=== PATIENT | female | born 1985 | race Caucasian/White ===

== ENCOUNTER → 2019-12-16 09:06 | Outpatient (BNVA) | payer OTHER, SELFPAY | PROVIDERS: Visit Provider Nurse Practitioner | DX: F43.12 Post-traumatic stress disorder, chronic (principal); F41.1 Generalized anxiety disorder; F33.2 Major depressive disorder, recurrent severe without psychotic features | CPT/HCPCS: 99213 ==

== ENCOUNTER 2020-08-05 08:46 | Emergency (ER) | payer MEDICAID, SELFPAY ==
[2020-08-05 09:00] VITALS: BP 133/77; PULSE 89; RESP 18; TEMP 36.6; O2SAT 96; BMI 25.6
[2020-08-05 09:13] VITALS: BP 133/77; PULSE 85; RESP 18; O2SAT 99
--- NOTE | 2020-08-05 09:18 | US_ITS ---
WS: [id number] EARLY OBSTETRICAL ULTRASOUND (<14 WEEKS). HISTORY: Vaginal bleed with cramping COMPARISON: None available. Single intrauterine gestational sac is identified. Uterus is retroverted. Cardiac activity at 100 BPM . [place]-rump length measures 0.2 cm which corresponds to a gestation of 5w6d. Normal-appearing yolk s ac and amnion demonstrated. No subchorionic hemorrhage. No free fluid. Mild thick wall corpus luteum cyst RIGHT ovary measures 1.3 x 0.7 x 1.5 cm. Bilateral small ovarian f ollicles. US/US OB <=14 wk fetus w transvag IMPRESSION: 1. Single intrauterine gestation of 5 weeks 6 days with an EDC of 04/01/2021. 2. Normal cardiac activity.
--- NOTE | 2020-08-05 09:35 | ED_ITS ---
HPI - General: Chief complaint: Vaginal Bleeding Stated complaint: vaginal bleeding Time Seen by Provider: 08/05/20 09:04 History of Present Illness: HPI Narrative: 35-year-old female patient presents to the emergency department with vaginal bleeding that occurred 2 to 3 days ago. She reports saturated 1 pad, bleeding stopped, she continues with cramping today upon exam. She reports positive test at home, last menstrual period 07/01/2020. She is 4 para 2 missed AB 2015. States has not taken anything for pain. MD Complaint: vaginal bleeding Onset (ago): day(s) (4-5) Pain Consistency: intermittent Location: pelvis Severity: mild Severity scale (1-10): 3 Quality: Cramping Radiation: pelvis Relieving factors: none Exacerbating factors: none Vaginal discharge: clear (now) Vaginal bleeding: light (2-3 days ago, none today) Date of Last Menstrual Period: 07/01/20 Patient : Yes OB History - Current : no complications OB History - Previous Pregnancies: miscarriage care: none Associated symptoms: Reports no associated symptoms; Deny abdominal pain, dysuria, headache(s), nausea, vaginal bleeding, vaginal discharge or vomiting Related Data: : 4 Review of Systems General: Reports: 10 or more systems reviewed and unremarkable except in HPI and below Const: Denies: fever(s), chills or diaphoresis Eyes: Denies: blurry vision or eye redness ENMT: Denies: throat pain, dental pain or disequilibrium Card: Denies: chest pain, palpitations or irregular heart rhythm Resp: Denies: dyspnea, productive cough, non-productive cough or wheezing GI: Denies: abdominal pain, nausea or vomiting : Reports: vaginal bleeding and pelvic pain; Denies: difficulty voiding, dysuria, urinary frequency, urinary urgency or vaginal discharge Musc: Denies: back pain Skin/Breast: Denies: rash or pruritus Neuro: Denies: headache(s), weakness in extremities or behavioral changes Fermin/Lymph: Denies: easy bruising PFSH ED PFSH: Medical History (Updated 08/05/20 @ 11:21 by JENI Fong) Generalized anxiety disorder Major depressive disorder, recurrent severe without psychotic features Post-traumatic stress disorder, chronic Social History (Updated 12/16/19 @ 09:11 by Denise Villavicencio LPN) Smoking and tobacco status: current every day smoker cigarettes Smoking risk assessment/counseling performed?: Yes Tobacco counseling given: counseling >3 minutes Female Reproductive History: Date of last menstrual period: 07/01/20 : 4 Physical Exam Const: COMMON NORMALS: no acute distress, patient oriented x3, healthy appearing and alert GENERAL APPEARANCE: cooperative, comfortable and well hydrated HENMT: COMMON NORMALS: normocephalic, Normal external nose present and moist oral mucous membranes HEAD & SCALP: normocephalic NOSE: Normal external nose present Eye: COMMON NORMALS: Equal, round and reactive pupils present and EOMs intact bilaterally GENERAL EYE: appearance normal, both eyes and all related structures PUPIL: Yes Equal, round and reactive pupils present Neck/C-Spine: COMMON NORMALS: full ROM and no lymphadenopathy GENERAL: Yes normal visual inspection and Yes trachea midline CERVICAL SPINE: Yes cervical ROM normal Lymph: LYMPHATIC: no lymphadenopathy noted Chest: COMMONS NORMALS: normal inspection of the chest Resp: COMMON NORMALS: normal respiratory effort and clear to auscultation bilaterally AUSCULTATION: clear to auscultation bilaterally Cardio: COMMON NORMALS: regular rhythm, S1 normal heart sound present and S2 normal heart sound present RHYTHM: regular rhythm HEART SOUNDS: S1 normal heart sound present and S2 normal heart sound present GI: COMMON NORMALS: Normal to inspection, nondistended, normoactive bowel sounds present, Soft to palpation and non-tender INSPECTION: Yes normal to inspection PALPATION: Yes Soft to palpation : COMMON NORMALS: Yes no CVA tenderness BLADDER/KIDNEY EXAM: Yes no CVA tenderness EXTERNAL FEMALE EXAM: Yes normal appearance of the urethra, No Inguinal lymphadenopathy and No externally tender SPECULUM EXAM - VAGINA: No laceration, No vaginal bleeding and No tenderness SPECULUM EXAM - CERVIX: No Cervical os open, Yes Cervical os closed, No Tissue present in the cervical os, No Cervical bleeding and Yes Cervical tenderness present BIMANUAL EXAM - VAGINA & UTERUS: Yes Cervical tenderness present and Yes Uterine tenderness OB/EXTERNAL & SPECULUM: No Cervical os open and vaginal bleeding Back/Pelvis: COMMON NORMALS: no CVA tenderness and thoracic and lumbar spine normal to inspection Extremity: COMMON NORMALS: normal to inspection and capillary refill normal Neuro: COMMON NORMALS: patient oriented x3 and no focal motor deficits SENSORIUM/ORIENTATION: Yes alert Psych: COMMON NORMALS: mental status grossly normal, Normal thought process present and cooperative ACTIVITY/MOTOR BEHAVIOR: Yes appropriate eye contact THOUGHT PROCESS: Normal thought process present Skin: COMMON NORMALS: no rashes or lesions noted and turgor normal GENERAL SKIN EXAM: no rashes or lesions noted and turgor normal Course ED course: 35 year old female presents to the ED with vag bleeding, early , 5 weeks, 6 days, no bleeding identified with pelvic exam. BHCG appropriate for gestational age. RH +, BV noted on wet prep, Rx for Flagyl was provided to staff after patient left the ED. Advised to return to the ED for increased vag bleeding, increased pelvic pain or other concerning symptoms, verbalized understanding. Questions were answered as results of testing today discussed. Vital Signs: Vital signs: Vital Signs Temperature 97.8 F 08/05/20 11:34 Pulse Rate 70 08/05/20 11:34 Respiratory Rate 16 08/05/20 11:34 Blood Pressure 104/57 08/05/20 11:34 Pulse Oximetry 100 08/05/20 11:34 MDM - OB/Uterine Contractions Lab Data: Labs: Lab Results 08/05/20 08/05/20 08/05/20 Range/Units 09:20 09:20 09:20 WBC 8.6 (4.0-10.0) 10^3/ uL RBC 4.95 (4.1-5.3) 10^6/u L Hgb 15.1 (11.5-15.3) g/dL Hct 45.5 (37.0-47.0) % MCV 91.9 (81-99) fL MCH 30.5 (28.0-34.0) pg MCHC 33.2 (30.0-36.0) g/dL RDW 12.0 L (12.1-15.1) % Plt Count 320 (130-400) 10^3/c mm MPV 10.7 H (7.4-10.4) fL Neut % (Auto) 67.2 % Lymph % (Auto) 21.8 % Bryan % (Auto) 8.4 % Eos % (Auto) 1.6 % Baso % (Auto) 0.5 % Neut # (Auto) 5.75 (1.8-7.7) 10^3/u L Lymph # (Auto) 1.9 (0.8-4.8) 10^3/u L Bryan # (Auto) 0.7 (0.2-0.9) 10^3/u L Eos # (Auto) 0.1 (0.0-0.8) 10^3/u L Baso # (Auto) 0.0 (0.0-0.1) 10^3/u L Nucleated RBC % (a uto) 0 % Nucleated RBCs # 0.0 /100WBC Sodium 136 (136-145) mmol/L Potassium 3.7 (3.5-5.1) mmol/L Chloride 104 (98-107) mmol/L Carbon Dioxide 22 (22-29) mmol/L Anion Gap 13.7 (5-19) BUN 9 (6-20) mg/dL Creatinine 0.6 (0.5-0.9) mg/dL GFR Calculation 115.1 (90-130) mL/min Glucose 139 H (65-115) mg/dL Calculated Osmolal ity 283 L (285-295) mOsm/k g Calcium 9.1 (8.5-10.5) mg/dL Total Bilirubin 0.2 (0.15-1.2) mg/dL AST 17 (0-32) U/L ALT 19 (0-33) U/L Alkaline Phosphata se 60 (35-105) IU/L Total Protein 7.0 (6.6-8.7) g/dL Albumin 4.3 (3.5-5.2) g/dL Globulin 2.7 (1.3-4.6) g/dL Ser , Tayo i-Qnt mIU/mL Blood Type AB Positive Rho(D) Type Positive 08/05/20 Range/Units 09:20 WBC (4.0-10.0) 10^3/ uL RBC (4.1-5.3) 10^6/u L Hgb (11.5-15.3) g/dL Hct (37.0-47.0) % MCV (81-99) fL MCH (28.0-34.0) pg MCHC (30.0-36.0) g/dL RDW (12.1-15.1) % Plt Count (130-400) 10^3/c mm MPV (7.4-10.4) fL Neut % (Auto) % Lymph % (Auto) % Bryan % (Auto) % Eos % (Auto) % Baso % (Auto) % Neut # (Auto) (1.8-7.7) 10^3/u L Lymph # (Auto) (0.8-4.8) 10^3/u L Bryan # (Auto) (0.2-0.9) 10^3/u L Eos # (Auto) (0.0-0.8) 10^3/u L Baso # (Auto) (0.0-0.1) 10^3/u L Nucleated RBC % (a uto) % Nucleated RBCs # /100WBC Sodium (136-145) mmol/L Potassium (3.5-5.1) mmol/L Chloride (98-107) mmol/L Carbon Dioxide (22-29) mmol/L Anion Gap (5-19) BUN (6-20) mg/dL Creatinine (0.5-0.9) mg/dL GFR Calculation (90-130) mL/min Glucose (65-115) mg/dL Calculated Osmolal ity (285-295) mOsm/k g Calcium (8.5-10.5) mg/dL Total Bilirubin (0.15-1.2) mg/dL AST (0-32) U/L ALT (0-33) U/L Alkaline Phosphata se (35-105) IU/L Total Protein (6.6-8.7) g/dL Albumin (3.5-5.2) g/dL Globulin (1.3-4.6) g/dL Ser , Tayo i-Qnt 58980.00 mIU/mL Blood Type Rho(D) Type Imaging Data^: US OB: Radiologist's impression: [address] [address] Ultrasound Report Signed Patient: Mansi Figueroa #: [id number] : 1985Acct#:[id number] Age/Sex: 35 / FADM Date: 08/05/20 Loc: ERRoom/Bed: Attending Dr: Ordering Provider/Ordering MD: Herminia Jacobo Date of Service: 08/05/20 Procedure(s): US OB <=14 wk fetus w transvag Accession Number(s): [id number] Report Number: [id number] WS: [id number] EARLY OBSTETRICAL ULTRASOUND (<14 WEEKS). HISTORY: Vaginal bleed with cramping COMPARISON: None available. Single intrauterine gestational sac is identified. Uterus is retroverted. Cardiac activity at 100 BPM. [place]-rump length measures 0.2 cm which corresponds to a gestation of 5w6d. Normal-appearing yolk sac and amnion demonstrated. No subchorionic hemorrhage. No free fluid. Mild thick wall corpus luteum cyst RIGHT ovary measures 1.3 x 0.7 x 1.5 cm. Bila teral small ovarian follicles. US/US OB <=14 wk fetus w transvag IMPRESSION: 1. Single intrauterine gestation of 5 weeks 6 days with an EDC of 04/01/2021. 2. Normal cardiac activity. Dictated By:Josefina Perez DO Signed By:Josefina Perez DOSigned Date/Time:08/05/20 1017 DD/ 1015 Discharge Plan Discharge Patient Disposition: Home Clinical Impression: Threatened in first trimester, Vaginal bleeding in Condition: Stable Prescriptions: No Action alprazolam [Xanax] 0.5 mg tablet 0.5 mg PO TID PRN (Reason: anxiety) Qty: 90 RF: 4 fluoxetine [Prozac] 20 mg capsule 20 mg PO DAILY Qty: 30 RF: 4 Discharge Orders: Discharge Order (Routine); Ordered 08/05/20 Ordered By: Herminia Jacobo Referrals: [facility], [Primary Care Provider] - Discharge Diet: Advance as tolerated Discharge Activity: Resume usual activity Patient Instructions: Threatened Miscarriage (ED), Abdominal Pain in (ED) Activity Restrictions/Additional Instructions: Take Tylenol as needed for pelvic pain Return to the emergency department if you experience vaginal bleeding, increased abdominal/pelvic pain Follow-up with PERINATAL BREASTFEEDING ASSISTANT for OB care. Return to the emergency department if you feel lightheaded or dizzy, drink plenty of fluids, avoid sexual activity until follow-up with your PERINATAL BREASTFEEDING ASSISTANT Discharge Date/Time: 08/05/20 11:37 Coding Level of Care Code ED Stoneworker for Chg Fwd Exam Comprehensive
[2020-08-05 09:45] LABS: Basophils % 0.5 %; Eosinophils # 0.1 10^3/uL (0.0-0.8); Eosinophils % 1.6 %; Hematocrit 45.5 % (37.0-47.0); Hemoglobin 15.1 g/dL (11.5-15.3); Lymphocytes # 1.9 10^3/uL (0.8-4.8); Lymphocytes % 21.8 %; Mean Corpuscular HGB Conc 33.2 g/dL (30.0-36.0); Mean Corpuscular Hemoglobin 30.5 pg (28.0-34.0); Mean Corpuscular Volume 91.9 fL (81-99); Mean Platelet Volume 10.7 fL (7.4-10.4); Monocytes # 0.7 10^3/uL (0.2-0.9); Monocytes % 8.4 %; Neutrophils # 5.75 10^3/uL (1.8-7.7); Neutrophils % 67.2 %; Nucleated Red Blood Cells % 0 %; Platelet Count 320 10^3/cmm (130-400); Red Blood Count 4.95 10^6/uL (4.1-5.3); White Blood Count 8.6 10^3/uL (4.0-10.0)
--- NOTE | 2020-08-05 09:48 | PC.NURSE ---
Pt refused a UA. Doesnt want the extra cost
--- NOTE | 2020-08-05 10:01 | PC.NURSE ---
Pt gave a UA sample,
[2020-08-05 10:13] LABS: Alanine Aminotransferase 19 U/L (0-33); Albumin Level 4.3 g/dL (3.5-5.2); Alkaline Phosphatase 60 IU/L (35-105); Anion Gap 13.7 (5-19); Aspartate Amino Transferase 17 U/L (0-32); Blood Urea Nitrogen 9 mg/dL (6-20); Calcium 9.1 mg/dL (8.5-10.5); Carbon Dioxide 22 mmol/L (22-29); Chloride 104 mmol/L (98-107); Globulin 2.7 g/dL (1.3-4.6); Glomerular Filtration Rate 115.1 mL/min (90-130); Glucose 139 mg/dL (65-115); Osmolality Calculated 283 mOsm/kg (285-295); Potassium 3.7 mmol/L (3.5-5.1); Sodium 136 mmol/L (136-145); Total Bilirubin 0.2 mg/dL (0.15-1.2)
[2020-08-05 10:19] VITALS: BP 115/64; PULSE 86; RESP 18; O2SAT 99
[2020-08-05 11:34] VITALS: BP 104/57; PULSE 70; RESP 16; TEMP 36.6; O2SAT 100
== END 2020-08-05 11:37 | disposition home or self-care (01) ==
PROVIDERS: Emergency Provider Nurse Practitioner Family
DX: O20.0 Threatened abortion (principal); Z3A.01 Less than 8 weeks gestation of pregnancy; O99.331 Smoking (tobacco) complicating pregnancy, first trimester; F17.210 Nicotine dependence, cigarettes, uncomplicated
CPT/HCPCS: 12345; 36415; 76801; 76817; 80053; 84702; 85025; 86900; 87070; 87205; 87210; 87491; 87591; 87661; 99283

== ENCOUNTER 2020-09-06 11:58 | Emergency (ER) | payer MEDICAID, SELFPAY ==
[2020-09-06 12:02] VITALS: BP 133/77; PULSE 89; RESP 16; TEMP 36.5; O2SAT 100; BMI 26.9
--- NOTE | 2020-09-06 12:06 | CTR_ITS ---
PROCEDURE INFORMATION: Exam: CT Head Without Contrast Exam date and time: 09/06/2020 12:07 PM Age: 35 years old Clinical indication: Pain; Headache not specified; Patient HX: Headache x 3 weeks, no trauma; Additional info: LEA TECHNIQUE: Imaging protocol: Computed tomography of the head without contrast. Radiation optimization: All CT scans at this facility use at least one of these dose optimization techniques: automated exposure control; mA and/or kV adjustment per patient size (includes targeted exams where dose is matched to clinical indication); or iterative reconstruction. COMPARISON: No relevant prior studies available. RADIATION DOSE METRICS: Total DLP (mGy-cm): 652.06 FINDINGS: Brain: There is no acute intracranial hemorrhage. No extra-axial fluid collection. No evidence of acute infarct. Mo white differentiation is intact. There is no evidence of mass. There is no mass effect or midline shift. Cerebral ventricles: No ventriculomegaly. Bones/joints: No acute fracture. Paranasal sinuses: Visualized sinuses are unremarkable. No fluid levels. Mastoid air cells: No significant mastoid effusion. Soft tissues: Unremarkable as visualized. CT/CT head wo con* [id number] IMPRESSION: No evidence of acute intracranial abnormality. No acute hemorrhage. No evidence of acute infarct or mass. Radiation Dose CTDIVOL = (mGy): DLP = 652.06 (mGy-cm)
--- NOTE | 2020-09-06 12:07 | W.ED.HA ---
HPI - Headache General: Chief Complaint: Headache Stated Complaint: MIGRAINE X 3 WKS, VISION CHANGES Time Seen by Provider: 09/06/20 12:04 Source: patient Mode of arrival: ambulatory Limitations: no limitations History of Present Illness: HPI Narrative: 35-year-old female states she had a migraine over the last 2 weeks. She states that this gradually worsened over the last 2 weeks. She states that it comes and goes. She does have photophobia. Denies any fever. Denies any injuries. MD elicited complaint: headache Associated symptoms: Deny chest pain, fever(s), nausea, rash or vomiting Review of Systems Const: Denies: fever(s), chills, body aches or change in appetite Eyes: Denies: blurry vision or eye discomfort ENMT: Denies: throat pain or dental pain Card: Denies: chest pain Resp: Denies: dyspnea GI: Denies: abdominal pain, nausea, vomiting or diarrhea : Denies: dysuria Musc: Denies: neck pain or back pain Skin/Breast: Denies: rash Neuro: Reports: headache(s) Psych: Denies: depression Fermin/Lymph: Denies: easy bruising All/Imm: Denies: urticaria PFSH ED PFSH: Medical History Generalized anxiety disorder Major depressive disorder, recurrent severe without psychotic features Post-traumatic stress disorder, chronic Social History Smoking and tobacco status: former smoker Smoking risk assessment/counseling performed?: Yes Tobacco counseling given: counseling >3 minutes Female Reproductive History: Date of last menstrual period: 07/01/20 Physical Exam Const: COMMON NORMALS: no acute distress, patient oriented x3 and healthy appearing HENMT: COMMON NORMALS: normocephalic and atraumatic HEAD & SCALP: normocephalic and atraumatic Eye: COMMON NORMALS: Equal, round and reactive pupils present and EOMs intact bilaterally PUPIL: Yes Equal, round and reactive pupils present Neck/C-Spine: COMMON NORMALS: full ROM and supple Chest: COMMONS NORMALS: normal inspection of the chest and normal palpation of entire chest wall Resp: COMMON NORMALS: normal respiratory effort, No retractions, No use of accessory muscles and clear to auscultation bilaterally AUSCULTATION: clear to auscultation bilaterally Cardio: COMMON NORMALS: regular rate, regular rhythm and No murmurs present (Cardio) RATE: regular rate RHYTHM: regular rhythm GI: COMMON NORMALS: Normal to inspection, nondistended, normoactive bowel sounds present, Soft to palpation, non-tender and no masses PALPATION: Yes Soft to palpation Extremity: COMMON NORMALS: normal to inspection and full ROM Neuro: COMMON NORMALS: patient oriented x3, moves all extremities and no focal motor deficits Psych: COMMON NORMALS: mental status grossly normal, Normal thought process present and cooperative THOUGHT PROCESS: Normal thought process present Skin: COMMON NORMALS: no rashes or lesions noted and no wounds GENERAL SKIN EXAM: no rashes or lesions noted Course Vital Signs: Vital signs: Vital Signs Temperature 97.7 F 09/06/20 12:02 Pulse Rate 97 09/06/20 12:08 Respiratory Rate 16 09/06/20 12:08 Blood Pressure 133/77 09/06/20 12:08 Pulse Oximetry 99 09/06/20 12:08 MDM - Headache MDM Narrative: Medical decision making narrative: Mansi presents here with a headache. Likely migraine headache with her . CT along with CTA are normal. Patient is well-appearing here and feels improved. She is stable for discharge and is to follow-up with PCP and return if worsening. She understands agrees plan. Lab Data: Labs: Lab Results 09/06/20 09/06/20 Range/Units 13:12 13:12 WBC 9.0 (4.0-10.0) 10^3/ uL RBC 4.85 (4.1-5.3) 10^6/u L Hgb 14.7 (11.5-15.3) g/dL Hct 42.9 (37.0-47.0) % MCV 88.5 (81-99) fL MCH 30.3 (28.0-34.0) pg MCHC 34.3 (30.0-36.0) g/dL RDW 12.2 (12.1-15.1) % Plt Count 355 (130-400) 10^3/c mm MPV 10.2 (7.4-10.4) fL Neut % (Auto) 59.9 % Lymph % (Auto) 28.9 % Wilkinson % (Auto) 8.9 % Eos % (Auto) 1.6 % Baso % (Auto) 0.4 % Neut # (Auto) 5.40 (1.8-7.7) 10^3/u L Lymph # (Auto) 2.6 (0.8-4.8) 10^3/u L Wilkinson # (Auto) 0.8 (0.2-0.9) 10^3/u L Eos # (Auto) 0.1 (0.0-0.8) 10^3/u L Baso # (Auto) 0.0 (0.0-0.1) 10^3/u L Nucleated RBC % (a uto) 0 % Nucleated RBCs # 0.0 /100WBC Sodium 138 (136-145) mmol/L Potassium 3.5 (3.5-5.1) mmol/L Chloride 103 (98-107) mmol/L Carbon Dioxide 22 (22-29) mmol/L Anion Gap 16.5 (5-19) BUN 7 (6-20) mg/dL Creatinine 0.5 (0.5-0.9) mg/dL Calculated Osmolal ity 285 (285-295) mOsm/k g Calcium 9.6 (8.5-10.5) mg/dL Total Bilirubin 0.2 (0.15-1.2) mg/dL AST 18 (0-32) U/L ALT 28 (0-33) U/L Alkaline Phosphata se 52 (35-105) IU/L Total Protein 6.9 (6.6-8.7) g/dL Albumin 4.2 (3.5-5.2) g/dL Globulin 2.7 (1.3-4.6) g/dL Imaging Data^: CT Head: Attestation: I personally reviewed and interpreted this imaging study as follows: Radiologist's impression: [address] [address] [address] Scan Report Signed Patient: Mansi Figueroa Unit #: [id number] : 1985 Age/Sex: 35 / F ADM Date: 09/06/20 Loc: ER Room/Bed: Attending Dr: Ordering Provider/Ordering MD: Kalli Vivar MD Date of Service: 09/06/20 Procedure(s): CT angio headneck* [id number] Accession Number(s): [id number] Report Number: [id number] PROCEDURE INFORMATION: Exam: CT Angiography Head With Contrast Exam date and time: 09/06/2020 12:53 PM Age: 35 years old Clinical indication: Pain; Headache; Patient HX: x 10 weeks, patient 2x shielded and aware of risk. ; Additional info: LEA TECHNIQUE: Imaging protocol: Computed tomography angiography of the head with intravenous contrast. I did not consent patient for procedure and was not consulted prior to performing study. History notes indicate that patient was appropriately shielded x2 and aware risk. 3D rendering (Not supervised by radiologist): MIP and/or 3D reconstructed images were created by the technologist. Radiation optimization: All CT scans at this facility use at least one of these dose optimization techniques: automated exposure control; mA and/or kV adjustment per patient size (includes targeted exams where dose is matched to clinical indication); or iterative reconstruction. Contrast material: VISIPAQUE 320; Contrast volume: 80 ml; Contrast route: INTRAVENOUS (IV); COMPARISON: CT head wo con* [id number] 09/06/2020 12:19 PM RADIATION DOSE METRICS: Total DLP (mGy-cm): 2118.46 FINDINGS: ANTERIOR CIRCULATION: Right internal carotid artery: Unremarkable. Intracranial segment is patent with no significant stenosis. No aneurysm. Right middle cerebral artery: Unremarkable. No occlusion or significant stenosis. No aneurysm. Right anterior cerebral artery: Unremarkable. No occlusion or significant stenosis. No aneurysm. Left internal carotid artery: Unremarkable. Intracranial segment is patent with no significant stenosis. No aneurysm. Left middle cerebral artery: Unremarkable. No occlusion or significant stenosis. No aneurysm. Left anterior cerebral artery: Unremarkable. No occlusion or significant stenosis. No aneurysm. POSTERIOR CIRCULATION: Right vertebral artery: Unremarkable. No occlusion or significant stenosis. No aneurysm. Left vertebral artery: Unremarkable. No occlusion or significant stenosis. No aneurysm. Basilar artery: Unremarkable. No occlusion or significant stenosis. No aneurysm. Right posterior cerebral artery: Unremarkable. No occlusion or significant stenosis. No aneurysm. Left posterior cerebral artery: Unremarkable. No occlusion or significant stenosis. No aneurysm. Veins: The cerebral venous structures are patent and show no evidence of thrombosis or occlusion. Brain: No definite mass, mass effect, or midline shift. Cerebral ventricles: Normal. No ventriculomegaly. Bones/joints: Unremarkable. No acute fracture. Soft tissues: Unremarkable. IMPRESSION: Unremarkable CTA. No evidence of arterial stenosis or occlusion. No aneurysm. No evidence of cerebral venous thrombosis. PROCEDURE INFORMATION: Exam: CT Angiography Neck With Contrast Exam date and time: 09/06/2020 12:53 PM Age: 35 years old Clinical indication: Pain; Headache; Patient HX: x 10 weeks, patient 2x shielded and aware of risk. ; Additional info: LEA TECHNIQUE: Imaging protocol: Computed tomography angiography of the neck with intravenous contrast. 3D rendering (Not supervised by radiologist): MIP and/or 3D reconstructed images were created by the technologist. Radiation optimization: All CT scans at this facility use at least one of these dose optimization techniques: automated exposure control; mA and/or kV adjustment per patient size (includes targeted exams where dose is matched to clinical indication); or iterative reconstruction. Contrast material: VISIPAQUE 320; Contrast volume: 80 ml; Contrast route: INTRAVENOUS (IV); COMPARISON: CT head wo con* [id number] 09/06/2020 12:19 PM RADIATION DOSE METRICS: Total DLP (mGy-cm): 2118.46 FINDINGS: Right common carotid artery: No stenosis. No dissection or occlusion. Right internal carotid artery: No stenosis of the extracranial segment. No dissection or occlusion. Right external carotid artery: No occlusion or stenosis of the origin. Right vertebral artery: No stenosis. No dissection or occlusion. Left common carotid artery: No stenosis. No dissection or occlusion. Left internal carotid artery: See Lymph nodes finding. Left external carotid artery: No occlusion or stenosis of the origin. Left vertebral artery: No stenosis. No dissection or occlusion. Subclavian arteries: Bilateral widely patent subclavian arteries. Aorta: Aortic arch normal caliber without aneurysm or dissection. Three vessel aortic arch without great vessel origin stenosis. Other vasculature: Internal jugular veins are widely patent without thrombosis. Bones/joints: No acute fracture. Soft tissues: Normal. No significant soft tissue swelling. Lymph nodes: There is aortic or pulmonary window lymph node measuring 0.7 cm short axis dimension. There is partially visualized soft tissue at left hilum measuring approximately 1.3 cm. This is also likely a lymph node. CT/CT angio headneck* [id number] IMPRESSION: 1. No cervical vascular stenosis, occlusion, or evidence of dissection. 2. Partially visualized mediastinal hilar lymph nodes. Discharge Plan Discharge Patient Disposition: Home Clinical Impression: Headache Qualifiers: Headache type: unspecified Headache chronicity pattern: unspecified pattern Intractability: not intractable Qualified Code(s): R51.9 - Headache, unspecified Condition: Stable Prescriptions: No Action alprazolam [Xanax] 0.5 mg tablet 0.5 mg PO TID PRN (Reason: anxiety) Qty: 90 RF: 4 fluoxetine [Prozac] 20 mg capsule 20 mg PO DAILY Qty: 30 RF: 4 1 tab PO DAILY RF: 0 Discharge Orders: Discharge Order (Routine); Ordered 09/06/20 Ordered By: Kalli Vivar Discharge Diet: Advance as tolerated Discharge Activity: Resume usual activity Patient Instructions: Acute Headache (ED) Coding Level of Care Code ED Grinder Set Up Operator Universal for Chg Fwd Exam Comprehensive
[2020-09-06 12:08] VITALS: BP 133/77; PULSE 97; RESP 16; O2SAT 99
--- NOTE | 2020-09-06 12:52 | CTR_ITS ---
PROCEDURE INFORMATION: Exam: CT Angiography Head With Contrast Exam date and time: 09/06/2020 12:53 PM Age: 35 years old Clinical indication: Pain; Headache; Patient HX: x 10 weeks, patient 2x shielded and aware of risk. ; Additional info: LEA TECHNIQUE: Imaging protocol: Computed tomography angiography of the head with intravenous contrast. I did not consent patient for procedure and was not consulted prior to performing study. History notes indicate that patient was appropriately shielded x2 and aware risk. 3D rendering (Not supervised by radiologist): MIP and/or 3D reconstructed images were created by the technologist. Radiation optimization: All CT scans at this facility use at least one of these dose optimization techniques: automated exposure control; mA and/or kV adjustment per patient size (includes targeted exams where dose is matched to clinical indication); or iterative reconstruction. Contrast material: VISIPAQUE 320; Contrast volume: 80 ml; Contrast route: INTRAVENOUS (IV); COMPARISON: CT head wo con* [id number] 09/06/2020 12:19 PM RADIATION DOSE METRICS: Total DLP (mGy-cm): 2118.46 FINDINGS: ANTERIOR CIRCULATION: Right internal carotid artery: Unremarkable. Intracranial segment is patent with no significant stenosis. No aneurysm. Right middle cerebral artery: Unremarkable. No occlusion or significant stenosis. No aneurysm. Right anterior cerebral artery: Unremarkable. No occlusion or significant stenosis. No aneurysm. Left internal carotid artery: Unremarkable. Intracranial segment is patent with no significant stenosis. No aneurysm. Left middle cerebral artery: Unremarkable. No occlusion or significant stenosis. No aneurysm. Left anterior cerebral artery: Unremarkable. No occlusion or significant stenosis. No aneurysm. POSTERIOR CIRCULATION: Right vertebral artery: Unremarkable. No occlusion or significant stenosis. No aneurysm. Left vertebral artery: Unremarkable. No occlusion or significant stenosis. No aneurysm. Basilar artery: Unremarkable. No occlusion or significant stenosis. No aneurysm. Right posterior cerebral artery: Unremarkable. No occlusion or significant stenosis. No aneurysm. Left posterior cerebral artery: Unremarkable. No occlusion or significant stenosis. No aneurysm. Veins: The cerebral venous structures are patent and show no evidence of thrombosis or occlusion. Brain: No definite mass, mass effect, or midline shift. Cerebral ventricles: Normal. No ventriculomegaly. Bones/joints: Unremarkable. No acute fracture. Soft tissues: Unremarkable. IMPRESSION: Unremarkable CTA. No evidence of arterial stenosis or occlusion. No aneurysm. No evidence of cerebral venous thrombosis. PROCEDURE INFORMATION: Exam: CT Angiography Neck With Contrast Exam date and time: 09/06/2020 12:53 PM Age: 35 years old Clinical indication: Pain; Headache; Patient HX: x 10 weeks, patient 2x shielded and aware of risk. ; Additional info: LEA TECHNIQUE: Imaging protocol: Computed tomography angiography of the neck with intravenous contrast. 3D rendering (Not supervised by radiologist): MIP and/or 3D reconstructed images were created by the technologist. Radiation optimization: All CT scans at this facility use at least one of these dose optimization techniques: automated exposure control; mA and/or kV adjustment per patient size (includes targeted exams where dose is matched to clinical indication); or iterative reconstruction. Contrast material: VISIPAQUE 320; Contrast volume: 80 ml; Contrast route: INTRAVENOUS (IV); COMPARISON: CT head wo con* [id number] 09/06/2020 12:19 PM RADIATION DOSE METRICS: Total DLP (mGy-cm): 2118.46 FINDINGS: Right common carotid artery: No stenosis. No dissection or occlusion. Right internal carotid artery: No stenosis of the extracranial segment. No dissection or occlusion. Right external carotid artery: No occlusion or stenosis of the origin. Right vertebral artery: No stenosis. No dissection or occlusion. Left common carotid artery: No stenosis. No dissection or occlusion. Left internal carotid artery: See Lymph nodes finding. Left external carotid artery: No occlusion or stenosis of the origin. Left vertebral artery: No stenosis. No dissection or occlusion. Subclavian arteries: Bilateral widely patent subclavian arteries. Aorta: Aortic arch normal caliber without aneurysm or dissection. Three vessel aortic arch without great vessel origin stenosis. Other vasculature: Internal jugular veins are widely patent without thrombosis. Bones/joints: No acute fracture. Soft tissues: Normal. No significant soft tissue swelling. Lymph nodes: There is aortic or pulmonary window lymph node measuring 0.7 cm short axis dimension. There is partially visualized soft tissue at left hilum measuring approximately 1.3 cm. This is also likely a lymph node. CT/CT angio headneck* [id number] IMPRESSION: 1. No cervical vascular stenosis, occlusion, or evidence of dissection. 2. Partially visualized mediastinal hilar lymph nodes. REFERENCES: NASCET CRITERIA. The degree of internal carotid artery stenosis is based on NASCET criteria. Normal is no stenosis. Mild is less than 50% stenosis. Moderate is 50-69% stenosis. Severe is 70% to 99% stenosis. Total occlusion is no detectable patent lumen. Radiation Dose CTDIVOL = (mGy): DLP = 2118.46~2118.46 (mGy-cm)
[2020-09-06] MEDS: metoclopramide 5 mg/mL SDV 2 mL 10 MG IVP (13:15)
[2020-09-06] MEDS: diphenhydrAMINE 50 mg/mL SDV 1mL IVP (13:15)
[2020-09-06] MEDS: sodium chloride 0.9% 1,000 ML 999 ML IV (13:15)
[2020-09-06] MEDS: iodixanol 320 mg/mL 100mL Btl IV (13:22)
[2020-09-06 13:38] LABS: Basophils % 0.4 %; Eosinophils # 0.1 10^3/uL (0.0-0.8); Eosinophils % 1.6 %; Hematocrit 42.9 % (37.0-47.0); Hemoglobin 14.7 g/dL (11.5-15.3); Lymphocytes # 2.6 10^3/uL (0.8-4.8); Lymphocytes % 28.9 %; Mean Corpuscular HGB Conc 34.3 g/dL (30.0-36.0); Mean Corpuscular Hemoglobin 30.3 pg (28.0-34.0); Mean Corpuscular Volume 88.5 fL (81-99); Mean Platelet Volume 10.2 fL (7.4-10.4); Monocytes # 0.8 10^3/uL (0.2-0.9); Monocytes % 8.9 %; Neutrophils % 59.9 %; Nucleated Red Blood Cells % 0 %; Platelet Count 355 10^3/cmm (130-400); Red Blood Count 4.85 10^6/uL (4.1-5.3); Red Cell Distribution Width 12.2 % (12.1-15.1)
--- NOTE | 2020-09-06 13:48 | PC.NURSE ---
patient returned from ct
[2020-09-06 14:01] LABS: Alanine Aminotransferase 28 U/L (0-33); Albumin Level 4.2 g/dL (3.5-5.2); Alkaline Phosphatase 52 IU/L (35-105); Anion Gap 16.5 (5-19); Aspartate Amino Transferase 18 U/L (0-32); Blood Urea Nitrogen 7 mg/dL (6-20); Calcium 9.6 mg/dL (8.5-10.5); Carbon Dioxide 22 mmol/L (22-29); Chloride 103 mmol/L (98-107); Globulin 2.7 g/dL (1.3-4.6); Glomerular Filtration Rate 142.1 mL/min (90-130); Glucose 116 mg/dL (65-115); Osmolality Calculated 285 mOsm/kg (285-295); Potassium 3.5 mmol/L (3.5-5.1); Sodium 138 mmol/L (136-145); Total Bilirubin 0.2 mg/dL (0.15-1.2); Total Protein 6.9 g/dL (6.6-8.7)
[2020-09-06 14:34] VITALS: BP 130/60; PULSE 86; RESP 18; O2SAT 97
== END 2020-09-06 14:36 | disposition home or self-care (01) ==
PROVIDERS: Emergency Provider Emergency Medicine
DX: R51.9 Headache, unspecified (principal); Z87.891 Personal history of nicotine dependence
CPT/HCPCS: 12345; 70450; 70496; 70498; 80053; 85025; 96361; 96374; 96375; 99282; 99283; J1200; J2765; J7030; Q9967

== ENCOUNTER 2020-09-08 08:55 | Outpatient (CLI) | payer MEDICAID, SELFPAY ==
--- NOTE | 2020-09-08 09:02 | US_ITS ---
WS: [id number] EARLY OBSTETRICAL ULTRASOUND (<14 WEEKS). HISTORY: SUPERVISION, NORMAL , MULTIPAROUS COMPARISON: None available. Single intrauterine gestational sac is identified. Cardiac activity at 167 BPM. Cabery-rump length yan sures 3.9 cm which corresponds to a gestation of 10w5d. Normal-appearing yolk sac and amnion demonstr ated. No subchorionic hemorrhage. No free fluid. Normal size ovaries with no mass. RIGHT ovary contains a corpus luteum cyst with a maximum diameter 1.8 cm. US/US OB <= 14 weeks fetus [id number] IMPRESSION: 1. Single intrauterine gestation of 10 weeks 5 days with an EDC of 04/01/2021. 2. Normal cardiac activity. No abnormality identified.
== END 2020-09-08 08:56 | disposition home or self-care (01) ==
PROVIDERS: Visit Provider Family Medicine
DX: Z34.81 Encounter for supervision of other normal pregnancy, first trimester; Z3A.10 10 weeks gestation of pregnancy
CPT/HCPCS: 76801

== ENCOUNTER 2020-11-03 09:54 | Outpatient (CLI) | payer MEDICAID, SELFPAY ==
--- NOTE | 2020-11-03 10:08 | US_ITS ---
WS: [id number] ULTRASOUND OB COMPLETE TECHNIQUE: Complete ultrasound. CLINICAL INFORMATION: ANATOMY/SUPERVISION NORMAL COMPARISON: September 08, 2020 FINDINGS: Normal cervix. Cervix measures 4.8 cm Single interuterine gestation is identified with breech presentation. Placenta is posterior. Placenta grade 0. Normal amniotic fluid volume. cardiac activity: 153 BPM. AGA: 19w2d INDU by ultrasound: 03/28/2021 Estimated weight: 282 g., %. BDP: 4.4 cm = 19w1d HC: 17.0 cm = 19w4d AC: 13.8 cm = 19w1d FEMUR LENGTH: 3.0 cm = 19w2d Anatomic survey: Right ventricular outflow tract, LVOT, Lip/Nose not well identified. Anatomic survey is otherwise normal. Normal stomach. Kidneys and bladder are normal. Normal 3 vessel cord. Normal 3 vessel cord insertion. Normal 4 chamber heart. Normal spine. Intracranial contents are normal. Normal posterior fossa and cisterna magna. US/US OB >= 14 weeks fetus [id number] IMPRESSION: 1. Single intrauterine with visualized cardiac activity. AGA 19w2d w ith INDU 03/28/2021. 2. Placenta is posterior No evidence of abruption or previa. 3. Right and left ventricular outflow tract not well seen. Lip and nose not we ll seen. Recommend additional attempt in one to 2 weeks 4. anatomic survey is otherwise normal. 5. Normal amniotic fluid volume.
== END 2020-11-03 09:55 | disposition home or self-care (01) ==
PROVIDERS: Visit Provider Family Medicine
DX: Z34.82 Encounter for supervision of other normal pregnancy, second trimester; Z3A.19 19 weeks gestation of pregnancy
CPT/HCPCS: 76805

== ENCOUNTER 2020-11-18 13:47 | Outpatient (CLI) | payer MEDICAID, SELFPAY ==
--- NOTE | 2020-11-18 13:52 | US_ITS ---
WS: [id number] ULTRASOUND OB LIMITED TECHNIQUE: Limited ultrasound examination of the fetus. CLINICAL INFORMATION: FOLLOW UP/US- CARDIAC OUTFLOW TRACTS PROFILE COMPARISON: November 03, 2020 FINDINGS: Cervix measures 4.2 cm Single interuterine gestation. presentation is breech Placental location is posterior. Placenta grade: 0. heart rate 150 BPM. Anatomy: Limited follow-up anatomy evaluation. Four-chamber heart view, LVOT and RVOT are well visual ized and normal. Nose and lips are fairly well-visualized and appear normal today. [place] [id number] IMPRESSION: 1. Limited follow-up anatomy evaluation. Four-chamber heart view, LVOT and RVO T are normal. Nose and lips appear normal today.
== END 2020-11-18 13:48 | disposition home or self-care (01) ==
LOC: RAD 13:49
PROVIDERS: PCP Family Medicine; Visit Provider Family Medicine
DX: Z34.80 Encounter for supervision of other normal pregnancy, unspecified trimester (principal)
CPT/HCPCS: 76816

== ENCOUNTER 2021-02-08 14:33 | Outpatient (CLI) | payer MEDICAID, SELFPAY ==
--- NOTE | 2021-02-08 14:41 | US_ITS ---
WS: [id number] ULTRASOUND OB LIMITED TECHNIQUE: Limited ultrasound examination of the fetus. CLINICAL INFORMATION: HIGH RISK 3RD TRIMESTER/GESTATIONAL DIABETES COMPARISON: None. FINDINGS: Cervix measures 4.3 cm Single interuterine gestation. presentation is cephalic Placental location is posterior. Placenta grade: 0. heart rate 138 BPM. Normal CATHERINE 13.8 cm 4 lbs. 15 oz. Gestational age 33 weeks 2 days Estimated delivery March 27, 2021 Biophysical profile 8 out of 8. breathin movement: 2 tone: 2 Amniotic fluid: 2 IMPRESSION Normal biophysical profile 8 out of 8
== END 2021-02-08 14:34 | disposition home or self-care (01) ==
PROVIDERS: PCP Family Medicine; Visit Provider Family Medicine
DX: O09.93 Supervision of high risk pregnancy, unspecified, third trimester (principal); O24.419 Gestational diabetes mellitus in pregnancy, unspecified control
CPT/HCPCS: 76816; 76819

== ENCOUNTER 2021-02-08 15:05 | Outpatient (CLI) | payer MEDICAID, SELFPAY ==
[2021-02-08 15:05] VITALS: BMI 29.6
[2021-02-08 15:19] VITALS: BP 125/64; PULSE 100
[2021-02-08 15:29] VITALS: TEMP 36.5
[2021-02-08 16:14] VITALS: RESP 16; TEMP 36.5
== END 2021-02-08 16:14 | disposition home or self-care (01) ==
LOC: OPOB 15:16 → OBGYN 16:09
PROVIDERS: PCP Family Medicine; Visit Provider Family Medicine
DX: O24.419 Gestational diabetes mellitus in pregnancy, unspecified control (principal); Z3A.00 Weeks of gestation of pregnancy not specified
CPT/HCPCS: 59025

== ENCOUNTER 2021-02-15 14:30 | Outpatient (CLI) | payer MEDICAID, SELFPAY ==
--- NOTE | 2021-02-15 14:38 | US_ITS ---
WS: [id number] BIOPHYSICAL PROFILE HISTORY: SUPERVISION HIGH RISK/GESTATIONAL DIABETES COMPARISON: None available. Cardiac activity: 160 bpm. Cervix: closed. Placenta: Posterior, no previa. Placenta grade: 2 Parameters are as follows: Breathin Movement: 2 Tone: 2 Fluid volume: 2 Largest vertical pocket of amniotic fluid 4.2 cm. US/US OB F/U w BPP wo NST IMPRESSION: 1. Biophysical profile score: 8/8. 2. Normal amniotic fluid.
== END 2021-02-15 14:31 | disposition home or self-care (01) ==
LOC: US 14:32
PROVIDERS: PCP Family Medicine; Visit Provider Family Medicine
DX: O24.419 Gestational diabetes mellitus in pregnancy, unspecified control (principal); O09.899 Supervision of other high risk pregnancies, unspecified trimester
CPT/HCPCS: 76816; 76819

== ENCOUNTER 2021-02-15 14:55 | Outpatient (CLI) | payer MEDICAID, SELFPAY ==
[2021-02-15 15:07] VITALS: BP 118/66; PULSE 95
[2021-02-15 15:23] VITALS: BP 115/64; PULSE 82
[2021-02-15 15:30] VITALS: BP 115/64; PULSE 82; RESP 16
== END 2021-02-15 15:30 | disposition home or self-care (01) ==
LOC: OPOB 15:03 → OBGYN 02-16 09:00
PROVIDERS: PCP Family Medicine; Visit Provider Family Medicine
DX: O24.419 Gestational diabetes mellitus in pregnancy, unspecified control (principal); Z3A.00 Weeks of gestation of pregnancy not specified
CPT/HCPCS: 59025

== ENCOUNTER 2021-02-22 14:32 | Outpatient (CLI) | payer MEDICAID, SELFPAY ==
--- NOTE | 2021-02-22 14:37 | US_ITS ---
WS: [id number] ULTRASOUND OB LIMITED TECHNIQUE: Limited ultrasound examination of the fetus. CLINICAL INFORMATION: SUPERVISION OF HIGH RISK 3RD TRIMESTER COMPARISON: February 15, 2021 FINDINGS: Cervix measures 2.8 cm Single interuterine gestation. Placental location is posterior. heart rate 153 BPM. Normal CATHERINE 14.1 cm Biophysical profile 8 out of 8. breathin movement: 2 tone: 2 Amniotic fluid: 2 IMPRESSION 1. Normal biophysical profile 8 out of 8 2. Cervix measures 2.8 cm
== END 2021-02-22 14:33 | disposition home or self-care (01) ==
LOC: US 14:33
PROVIDERS: PCP Family Medicine; Visit Provider Family Medicine
DX: O09.93 Supervision of high risk pregnancy, unspecified, third trimester (principal)
CPT/HCPCS: 76816; 76819

== ENCOUNTER 2021-02-22 15:06 | Outpatient (CLI) | payer MEDICAID, SELFPAY ==
[2021-02-22 15:15] VITALS: BP 128/84; PULSE 122; TEMP 36.5
[2021-02-22 15:21] VITALS: BMI 30.2
[2021-02-22 15:35] VITALS: BP 136/84; PULSE 90
[2021-02-22 15:55] VITALS: BP 133/76; PULSE 89
== END 2021-02-22 16:07 | disposition home or self-care (01) ==
LOC: OPOB 15:07 → OBGYN 15:08
PROVIDERS: PCP Family Medicine; Visit Provider Family Medicine
DX: O24.419 Gestational diabetes mellitus in pregnancy, unspecified control (principal); Z3A.00 Weeks of gestation of pregnancy not specified
CPT/HCPCS: 59025; 99211

== ENCOUNTER 2021-03-02 08:43 | Outpatient (CLI) | payer MEDICAID, SELFPAY ==
--- NOTE | 2021-03-02 08:52 | US_ITS ---
WS: [id number] BIOPHYSICAL PROFILE AMNIOTIC FLUID HISTORY: SUPERVISION HIGH RISK 3RD TRIMESTER/GESTATIONAL DM COMPARISON: 02/22/2021 Cardiac activity: Range from 176-198. bpm. Cervix: Poorly visualized. I suspect this services at least partially effaced. Placenta: Posterior and fundal. No previa. Placenta grade: 2 Parameters are as follows: Breathin Movement: 2 Tone: 2 Fluid volume: 2 Amniotic fluid index: 12.6 cm which is just beneath the 50th percentile. US/US OB F/U w BPP wo NST IMPRESSION: 1. Biophysical profile score: 8/8. 2. Normal amniotic fluid index. 3. tachycardia. 4. Poorly visualized cervix but does appear at least partially effaced. Notified Krishna Minaya MD at 03/02/2021 9:44 AM. Rn Hedis contacted Dr. González cason.
== END 2021-03-02 08:44 | disposition home or self-care (01) ==
LOC: RAD 08:46
PROVIDERS: PCP Family Medicine; Visit Provider Family Medicine
DX: O09.93 Supervision of high risk pregnancy, unspecified, third trimester (principal); O24.419 Gestational diabetes mellitus in pregnancy, unspecified control
CPT/HCPCS: 76816; 76819

== ENCOUNTER 2021-03-02 09:33 | Outpatient (CLI) | payer MEDICAID, SELFPAY ==
[2021-03-02] VITALS (11 sets, daily range): BP systolic 116; BP diastolic 67–70; PULSE 110–136; RESP 17; O2SAT 95–97
== END 2021-03-02 10:30 | disposition home or self-care (01) ==
LOC: OPOB 09:35 → OBGYN 09:36
PROVIDERS: PCP Family Medicine; Visit Provider Family Medicine
DX: O24.419 Gestational diabetes mellitus in pregnancy, unspecified control (principal); Z3A.00 Weeks of gestation of pregnancy not specified
CPT/HCPCS: 59025; 99211

== ENCOUNTER 2021-03-08 08:22 | Outpatient (CLI) | payer MEDICAID, SELFPAY ==
--- NOTE | 2021-03-08 08:28 | US_ITS ---
WS: [id number] ULTRASOUND OB LIMITED TECHNIQUE: Limited ultrasound examination of the fetus. CLINICAL INFORMATION: HIGH RISK 3RD TRIMESTER/GESTATIONAL DIABETES COMPARISON: None. FINDINGS: Cervix is long and closed measuring 3.6cm. Single interuterine gestation. Placental location is posterior fundal. Placenta grade: 2 heart rate 157 BPM. Normal CATHERINE 14.1 cm Estimated weight 7 lbs. 2 oz. Biophysical profile 8 out of 8. breathin movement: 2 tone: 2 Amniotic fluid: 2 US/US OB F/U w BPP wo NST IMPRESSION: Normal biophysical profile 8 out of 8
== END 2021-03-08 08:23 | disposition home or self-care (01) ==
LOC: RAD 08:24
PROVIDERS: PCP Family Medicine; Visit Provider Family Medicine
DX: O09.93 Supervision of high risk pregnancy, unspecified, third trimester (principal); O24.419 Gestational diabetes mellitus in pregnancy, unspecified control
CPT/HCPCS: 76816; 76819

== ENCOUNTER 2021-03-08 09:16 | Outpatient (CLI) | payer MEDICAID, SELFPAY ==
[2021-03-08 09:29] VITALS: BP 117/73; PULSE 95; TEMP 36.1
[2021-03-08 09:33] VITALS: RESP 16
[2021-03-08 09:34] VITALS: BMI 30.3
[2021-03-08 09:52] VITALS: BP 113/64; PULSE 87
== END 2021-03-08 10:13 | disposition home or self-care (01) ==
LOC: OPOB 09:17 → OBGYN 09:19
PROVIDERS: PCP Family Medicine; Visit Provider Family Medicine
DX: O24.419 Gestational diabetes mellitus in pregnancy, unspecified control (principal); Z3A.00 Weeks of gestation of pregnancy not specified
CPT/HCPCS: 59025

== ENCOUNTER 2021-03-11 08:36 | Outpatient (CLI) | payer MEDICAID, SELFPAY ==
--- NOTE | 2021-03-11 08:48 | US_ITS ---
WS: [id number] ULTRASOUND OB LIMITED TECHNIQUE: Limited ultrasound examination of the fetus. CLINICAL INFORMATION: SUPERVISION HIGH RISK COMPARISON: None. FINDINGS: Cervix measures 3.5 cm Single interuterine gestation. presentation is vertex Placental location is posterior. Placenta grade: 0. heart rate 141 BPM. CATHERINE 9.46 CM. Biophysical profile 8 out of 8. breathin movement: 2 tone: 2 Amniotic fluid: 2 [place] [id number] IMPRESSION: BPP 8 out of 8
== END 2021-03-11 08:37 | disposition home or self-care (01) ==
PROVIDERS: PCP Family Medicine; Visit Provider Family Medicine
DX: O09.93 Supervision of high risk pregnancy, unspecified, third trimester (principal); O24.419 Gestational diabetes mellitus in pregnancy, unspecified control
CPT/HCPCS: 76816

== ENCOUNTER 2021-03-11 09:38 | Outpatient (CLI) | payer MEDICAID, SELFPAY ==
[2021-03-11 09:47] VITALS: BP 109/67; PULSE 93
[2021-03-11 09:52] VITALS: RESP 18; BMI 30.3
[2021-03-11 10:31] VITALS: RESP 18
== END 2021-03-11 10:14 | disposition home or self-care (01) ==
LOC: OPOB 09:41 → OBGYN 09:41
PROVIDERS: PCP Family Medicine; Visit Provider Family Medicine
DX: O24.419 Gestational diabetes mellitus in pregnancy, unspecified control (principal); Z3A.00 Weeks of gestation of pregnancy not specified
CPT/HCPCS: 59025

== ENCOUNTER 2021-03-14 17:25 | Outpatient (CLI) | payer MEDICAID, SELFPAY ==
[2021-03-14] VITALS (7 sets, daily range): BP systolic 102–120; BP diastolic 63–79; PULSE 100–126; RESP 15–16; TEMP 36.3–36.6; BMI 29.9
== END 2021-03-14 19:50 | disposition home or self-care (01) ==
LOC: OPOB 17:25 → OBGYN 17:26
PROVIDERS: PCP Family Medicine; Visit Provider Family Medicine
DX: O26.899 Other specified pregnancy related conditions, unspecified trimester (principal); Z3A.00 Weeks of gestation of pregnancy not specified; R10.9 Unspecified abdominal pain
CPT/HCPCS: 59025; 99211

== ENCOUNTER 2021-03-15 08:35 | Outpatient (CLI) | payer MEDICAID, SELFPAY ==
--- NOTE | 2021-03-15 | US_ITS ---
WS: [id number] BIOPHYSICAL PROFILE AMNIOTIC FLUID INDEX. HISTORY: SUPERVISION HIGH RISK COMPARISON: 03/11/2021 Cardiac activity: 150 bpm. Cervix: closed. Placenta: Posterior, no previa or abruption. Placenta grade: 2 Parameters are as follows: Breathin Movement: 2 Tone: 2 Fluid volume: 2 Amniotic fluid index: 11.1 cm which is between the fifth and 50th percentiles for age. Index is sligh tly improved as compared to 03/11/2021. Largest vertical pocket of amniotic fluid 4.8 cm. US/US OB BPP wo NST [id number] IMPRESSION: 1. Biophysical profile score: 8/8. 2. Low normal amniotic fluid index. Slightly improved since 03/11/2021.
--- NOTE | 2021-03-15 08:46 | US_ITS ---
WS: [id number] BIOPHYSICAL PROFILE AMNIOTIC FLUID INDEX. HISTORY: SUPERVISION HIGH RISK COMPARISON: 03/11/2021 Cardiac activity: 150 bpm. Cervix: closed. Placenta: Posterior, no previa or abruption. Placenta grade: 2 Parameters are as follows: Breathin Movement: 2 Tone: 2 Fluid volume: 2 Amniotic fluid index: 11.1 cm which is between the fifth and 50th percentiles for age. Index is sligh tly improved as compared to 03/11/2021. Largest vertical pocket of amniotic fluid 4.8 cm. [place] [id number] IMPRESSION: 1. Biophysical profile score: 8/8. 2. Low normal amniotic fluid index. Slightly improved since 03/11/2021.
== END 2021-03-15 08:36 | disposition home or self-care (01) ==
LOC: RAD 08:37
PROVIDERS: PCP Family Medicine; Visit Provider Family Medicine
DX: O09.93 Supervision of high risk pregnancy, unspecified, third trimester (principal); O24.419 Gestational diabetes mellitus in pregnancy, unspecified control
CPT/HCPCS: 76816; 76819

== ENCOUNTER 2021-03-18 08:34 | Outpatient (CLI) | payer MEDICAID, SELFPAY ==
--- NOTE | 2021-03-18 08:43 | US_ITS ---
WS: [id number] BIOPHYSICAL PROFILE AMNIOTIC FLUID HISTORY: SUPERVISION HIGH RISK COMPARISON: 03/15/2021 Cardiac activity: 157 bpm. Cervix: closed. Placenta: Fundal, no previa. Placenta grade: 2 Parameters are as follows: Breathin Movement: 2 Tone: 2 Fluid volume: 2 Amniotic fluid index: 15.4 cm. Largest vertical pocket 5.4 cm. US/US OB lmt w/ BPP wo NST IMPRESSION: 1. Biophysical profile score: 8/8. 2. Amniotic fluid index near the 50th percentile for age. 2.
== END 2021-03-18 08:35 | disposition home or self-care (01) ==
LOC: RAD 08:37
PROVIDERS: PCP Family Medicine; Visit Provider Family Medicine
DX: O09.93 Supervision of high risk pregnancy, unspecified, third trimester (principal); O24.419 Gestational diabetes mellitus in pregnancy, unspecified control
CPT/HCPCS: 76815; 76819

== ENCOUNTER 2021-03-18 09:02 | Outpatient (CLI) | payer MEDICAID, SELFPAY ==
[2021-03-18 09:14] VITALS: BP 111/66; PULSE 111
[2021-03-18 09:21] VITALS: BMI 29.9
[2021-03-18 09:30] VITALS: BP 109/69; PULSE 85
== END 2021-03-18 09:39 | disposition home or self-care (01) ==
LOC: OPOB 09:09 → OBGYN 09:11
PROVIDERS: PCP Family Medicine; Visit Provider Family Medicine
DX: O24.419 Gestational diabetes mellitus in pregnancy, unspecified control (principal); Z3A.00 Weeks of gestation of pregnancy not specified
CPT/HCPCS: 59025

== ENCOUNTER 2021-03-23 09:17 | Outpatient (CLI) | payer MEDICAID, SELFPAY ==
--- NOTE | 2021-03-23 09:29 | US_ITS ---
WS: [id number] ULTRASOUND OB LIMITED TECHNIQUE: Limited ultrasound examination of the fetus. CLINICAL INFORMATION: SUPERVISION HIGH RISK /GESTATIONAL DIABETES/3RD TRI COMPARISON: March 18, 2021 FINDINGS: Single interuterine gestation Placental location is fundal. Placenta grade: 2 heart rate 164 BPM. CATHERINE 10.4 cm decrease from previous where it measured 15.4 cm Biophysical profile 8 out of 8. breathin movement: 2 tone: 2 Amniotic fluid: 2 IMPRESSION 1. Normal biophysical profile 8 out of 8 2. CATHERINE 10.4 cm, above the 5th percentile and below the median for gestational age
== END 2021-03-23 09:18 | disposition home or self-care (01) ==
LOC: RAD 09:20
PROVIDERS: PCP Family Medicine; Visit Provider Family Medicine
DX: O09.93 Supervision of high risk pregnancy, unspecified, third trimester (principal); O24.419 Gestational diabetes mellitus in pregnancy, unspecified control
CPT/HCPCS: 76816; 76819

== ENCOUNTER 2021-03-23 09:58 | Outpatient (CLI) | payer MEDICAID, SELFPAY ==
[2021-03-23 09:58] VITALS: BMI 30.2
[2021-03-23 10:12] VITALS: BP 111/74; PULSE 93; RESP 17; TEMP 36.4
== END 2021-03-23 10:40 | disposition home or self-care (01) ==
LOC: OPOB 09:59 → OBGYN 10:01
PROVIDERS: PCP Family Medicine; Visit Provider Family Medicine
DX: O24.419 Gestational diabetes mellitus in pregnancy, unspecified control (principal); Z3A.00 Weeks of gestation of pregnancy not specified
CPT/HCPCS: 59025

== ENCOUNTER 2021-03-25 11:11 | Outpatient (CLI) | payer MEDICAID, SELFPAY ==
[2021-03-25 11:36] VITALS: BP 109/66; PULSE 83
[2021-03-25 11:51] VITALS: BP 101/55; PULSE 86
[2021-03-25 12:06] VITALS: BP 101/56; PULSE 82
[2021-03-25 12:22] VITALS: BP 108/68; PULSE 91
[2021-03-25 12:23] LABS: Nitrazine Paper, PH Negative
[2021-03-25 12:42] VITALS: BMI 30.2
== END 2021-03-25 12:40 | disposition home or self-care (01) ==
LOC: OPOB 11:13 → OBGYN 11:14
PROVIDERS: PCP Family Medicine; Visit Provider Family Medicine
DX: O26.899 Other specified pregnancy related conditions, unspecified trimester (principal); Z3A.00 Weeks of gestation of pregnancy not specified; R10.9 Unspecified abdominal pain; N89.8 Other specified noninflammatory disorders of vagina
CPT/HCPCS: 59025; 83986; 99211

== ENCOUNTER 2021-03-26 08:29 | Outpatient (CLI) | payer MEDICAID, SELFPAY ==
--- NOTE | 2021-03-26 08:34 | US_ITS ---
WS: [id number] ULTRASOUND OB LIMITED TECHNIQUE: Limited ultrasound examination of the fetus. CLINICAL INFORMATION: HIGH RISK /3RD TRIMESTER/GESTATIONAL DIABETES COMPARISON: None. FINDINGS: Cervix is long and closed measuring 3.8 cm. Single interuterine gestation. presentation is cephalic. Low-lying head. Placental location is anterior. Placenta grade: 0. heart rate 164 BPM. CATHERINE 10.6 cm low normal, greater than 5th percentile and below the median. Gestational age 38 weeks 1 day with estimated delivery April 08, 2021 Biophysical profile 8 out of 8. breathin movement: 2 tone: 2 Amniotic fluid: 2 IMPRESSION 1. Normal biophysical profile 8 out of 8 2. Cervix appears long and closed measuring 3.8 cm. 3. Presentation is cephalic with low-lying head.
== END 2021-03-26 08:30 | disposition home or self-care (01) ==
LOC: RAD 08:31
PROVIDERS: PCP Family Medicine; Visit Provider Family Medicine
DX: O24.419 Gestational diabetes mellitus in pregnancy, unspecified control (principal); O09.93 Supervision of high risk pregnancy, unspecified, third trimester
CPT/HCPCS: 76815; 76819

== ENCOUNTER 2021-03-27 02:45 | Inpatient (IN) | payer MEDICAID, SELFPAY ==
[2021-03-27] VITALS (102 sets, daily range): BP systolic 91–147; BP diastolic 50–103; PULSE 66–118; RESP 15–16; TEMP 36.3–37; O2SAT 94–99; BMI 30.2
[2021-03-27] MEDS: lactated ringers 1,000 ML 999 ML IV ×2 (02:58→07:01)
[2021-03-27 03:03] LABS: Glucose Point of Care 94 mg/dL (70-110)
[2021-03-27 03:07] LABS: Basophils % 0.4 %; Eosinophils # 0.1 10^3/uL (0.0-0.8); Eosinophils % 0.9 %; Hematocrit 40.5 % (37.0-47.0); Hemoglobin 13.4 g/dL (11.5-15.3); Lymphocytes # 2.3 10^3/uL (0.8-4.8); Lymphocytes % 20.1 %; Mean Corpuscular HGB Conc 33.1 g/dL (30.0-36.0); Mean Corpuscular Hemoglobin 28.6 pg (28.0-34.0); Mean Corpuscular Volume 86.4 fL (81-99); Mean Platelet Volume 11.6 fL (7.4-10.4); Monocytes # 0.9 10^3/uL (0.2-0.9); Monocytes % 7.8 %; Neutrophils # 8.06 10^3/uL (1.8-7.7); Neutrophils % 70.5 %; Nucleated Red Blood Cells % 0 %; Platelet Count 247 10^3/cmm (130-400); Red Blood Count 4.69 10^6/uL (4.1-5.3); Red Cell Distribution Width 14.3 % (12.1-15.1); White Blood Count 11.4 10^3/uL (4.0-10.0)
[2021-03-27] MEDS: butorphanol 2 mg/mL SDV 1 mL 1 MG IVP (03:12)
--- NOTE | 2021-03-27 03:57 | P.HP_ITS ---
Providers/Chief Complaint Admitting Physician: Krishna Minaya MD Primary Care Provider: Krishna Minaya MD Chief Complaint: contractions History of Present Illness Mansi Figueroa is a 36 year old at 39.0 weeks gestation by LMP consistent with 6-week ultrasound. Her is complicated by migraine headaches, bleeding in first trimester, anxiety on fluoxetine, THC use in first trimester, history of LEEP, history of chlamydia, history of low transverse section, gestational diabetes on Levemir, COVID-19 infection on 11/06/2020. Patient presented to labor and delivery triage at approximately 2 AM on 03/27/2021 secondary to concern for leakage of fluid. The patient had some leakage of fluid a couple of days ago and was nitrazine negative and was discharged home. On the afternoon of 03/26/2021 at approximately 5 PM she had increased fluid leakage that was clear. This continued to increase to the evening and she began zoe more regularly. For this reason she presented. Her nitrazine was again negative, however she had multiple large gushes of fluid on exam. For this reason it was felt that she was ruptured despite what was likely a false negative nitrazine test. The patient was 3 cm upon admission and after an hour change to 4 cm dilation. The patient was zoe every 2 to 3 minutes upon admission. The patient denies any fevers, cough, chest pain, shortness of breath, nausea, vomiting, diarrhea, constipation, dysuria, vaginal bleeding. Medications/Allergies Home Medications Medication Instructions Recorded Confirmed Last Taken Type fluoxetine 20 mg capsule 20 mg PO DAILY #30 cap 05/20/20 03/27/21 03/26/21 07:00 Rx 1 tab PO DAILY 09/06/20 03/18/21 03/26/21 07:00 History insulin detemir U-100 [Levemir 35 unit SUBCUT DAILY 02/08/21 03/18/21 03/26/21 07:00 History Flexpen] 35 units Allergies Allergy/AdvReac Type Severity Reaction Status Date / Time Gadolinium-Containing Allergy Unknown Verified 03/27/21 02:18 Contrast Medi Iodinated Contrast Media Allergy Unknown Verified 03/27/21 02:18 PFSH Acute PFSH: Medical History (Updated 03/27/21 @ 11:10 by Krishna Minaya MD) Generalized anxiety disorder Major depressive disorder, recurrent severe without psychotic features Post-traumatic stress disorder, chronic Surgical History (Updated 03/27/21 @ 11:10 by Krishna Minaya MD) History of delivery History of loop electrical excision procedure (LEEP) Social History Smoking and tobacco status: former smoker Smoking risk assessment/counseling performed?: Yes Tobacco counseling given: counseling >3 minutes Female Reproductive History: Date of last menstrual period: 07/01/20 : 4 Vitals/I&O/Wt Last Vital Signs Temp 98.6 F 03/27/21 02:15 Pulse 80 03/27/21 03:49 BP 143/68 03/27/21 03:49 Weight last 48 hrs Weight 165 lb Physical Exam 2 Narrative: EXAM NARRATIVE: General: Alert and oriented x3 Eyes: Pupils equal round and reactive to light and accommodation Mouth: Mucous membranes moist, pharynx non-erythematous Cardiac: Regular rate and rhythm without murmurs Lungs: Clear to auscultation bilaterally without wheezes, crackles or rhonchi Abdomen: Soft, non-tender, fundus consistent with gestational age Extremities: Trace edema in the bilateral lower extremities Data : 03/27/21 02:58 A&P Assessment and plan (1) Gestational diabetes: Status: Acute (2) Intrauterine : Status: Acute (3) Generalized anxiety disorder: Status: Acute Additional A&P Information The patient presents with SROM and is in active labor. She is changed from 3 to 4 cm on her own and is zoe every 2 to 3 minutes. heart tones are category 1 at this time. Her initial blood sugar was 94. She has done very well with controlling her gestational diabetes with Levemir. We will continue to watch this throughout the labor process. The patient is GBS negative. I had a discussion with the patient and her significant other regarding risks of versus section in light of her history of prior section as well as having gestational diabetes and the potential complications that come with it. Since the patient is in spontaneous labor, she has opted to proceed with a TOLAC. We will watch for signs of complications and I will be immediatel y available in the hospital in case of problems. All questions were answered. The patient and her significant other are in agreement with the current plan of care. Attestations Medical Necessity Statement*: The patient will be here for greater than 2 midnights due to routine intrapartum and management of labor and delivery. Coding Level of Care Code Acute Flight Control Tower Operator for Chg Fwd Diagnoses Gestational diabetes O24.419 Intrauterine Z34.90 Generalized anxiety disorder F41.1
[2021-03-27] MEDS: dextrose 5%-lactated ringers 1,000 ML 125 ML IV (04:10)
--- NOTE | 2021-03-27 04:22 | PC.NURSE ---
GROUP CIO here at 0330; Dr. Minaya in room discussing at this time and waiting for bolus to finish.
[2021-03-27] MEDS: ondansetron 2 mg/ML SDV 2 mL 4 MG IVP (04:37)
--- NOTE | 2021-03-27 04:48 | ANES.PREANE2 ---
Pre-Anesthetic Assessment Pre-Anesthetic Assessment: Height/Weight: Height 1.57 m Weight 74.843 kg Temp Pulse BP Pulse Ox 98.4 F 76 129/76 95 03/27/21 04:14 03/27/21 04:44 03/27/21 04:44 03/27/21 04:44 Preop Diagnosis: active labor Proposed Procedure: continuous lumbar epidural Was Beta Lela taken within 24 hours: N/A Was Clonidine taken within 24 hours: N/A Last Intake: 00:00 Social: Social History: No alcohol and No tobacco Exam: Pre-Anes Outpt Exam: alert, oriented x 3, clear to auscultation bilaterally and regular rate & rhythm Airway: Submandibular: WNL Cervical ROM: WNL MP: 2 History/ROS: No significant complaints Pulmonary: Pulmonary: None reported CV/HEM: CV/HEM: None reported : : None reported Hepatic: Hepatic: None reported GI: GI: None reported Metabolic: Metabolic: None reported Musc/skel: Musc/skel: None reported Neuropsych: Neuropsych: None reported Anesthetic Plan: ASA status: 2 Anesthesia: Regional (specify below) Other: epidural Risk of > 500 ml blood loss (7ml/kg in children): Yes, adequate IV access and fluids planned () Meds/Allergies Current Medications: Current Medications Generic Name Dose Route Start Last Admin Trade Name Freq PRN Reason Stop Dose Admin Butorphanol Tartra te 1 mg 03/27/21 02:43 03/27/21 03:12 Butorphanol 2 Mg /Ml Sdv 1 Ml IVP 1 mg Q1H PRN Administration SEVERE PAIN Lactated Ringer's 1,000 mls @ 999 m ls/hr 03/27/21 02:44 03/27/21 02:58 Lactated Ringers IV 999 mls/hr .Q1H1M PRN Administration See label comment s Ondansetron HCl 4 mg 03/27/21 02:43 03/27/21 04:37 Ondansetron 2 Mg /Ml Sdv 2 Ml IVP 4 mg Q4H PRN Administration NAUSEA AND VOMITI NG PFSH Anesthesia PFSH: Medical History (Updated 09/14/20 @ 00:01 by ) Generalized anxiety disorder Major depressive disorder, recurrent severe without psychotic features Post-traumatic stress disorder, chronic Social History Smoking and tobacco status: former smoker Smoking risk assessment/counseling performed?: Yes Tobacco counseling given: counseling >3 minutes Female Reproductive History: Date of last menstrual period: 07/01/20 : 4 Data Anesthesia CBC & Chem 7: 03/27/21 02:58 Other Labs: Laboratory Results - last 48 hr 03/27/21 03/27/21 02:58 02:58 WBC 11.4 H RBC 4.69 Hgb 13.4 Hct 40.5 MCV 86.4 MCH 28.6 MCHC 33.1 RDW 14.3 Plt Count 247 MPV 11.6 H Neut % (Auto) 70.5 Lymph % (Auto) 20.1 [place] % (Auto) 7.8 Eos % (Auto) 0.9 Baso % (Auto) 0.4 Neut # (Auto) 8.06 H Lymph # (Auto) 2.3 [place] # (Auto) 0.9 Eos # (Auto) 0.1 Baso # (Auto) 0.0 Nucleated RBC % (auto) 0 Nucleated RBCs # 0.0 POC Glucose 94 Cardiac Studies: No Data to Display
--- NOTE | 2021-03-27 04:52 | ANES.PROC ---
Anesthesia Procedures Procedure/Date: 03/27/21 Epidural: Time Out Performed: Yes Consents Signed: Procedure Consent Consent: requested by attending/covering physician, from patient, risks and benefits reviewed and patient agrees to proceed Lumbar Level: L3-L4 Epidural position: sitting Epidural procedure: sterile prep of area, 1% lidocaine to numb the area, 18 g needle, negative for paresthesia passed, test dose given, 1.5% xylocaine 1:200k epi (3CC), 0.2% Ropivacaine bolus ml (6CC), placed PCEA, no systemic response, sterile dressing applied, L.U.D. no apparent complications and 0.2% Ropiavacaine @ mls/hr (10)
[2021-03-27 06:11] LABS: Glucose Point of Care 108 mg/dL (70-110)
[2021-03-27 07:47] LABS: Glucose Point of Care 90 mg/dL (70-110)
[2021-03-27] MEDS: oxytocin 30 UNIT/500 ML BAG 600 UNIT IV (10:29)
--- NOTE | 2021-03-27 11:21 | P.PCNOB_ITS ---
Delivery Note: Date of delivery: March 27, 2021 Pre-delivery diagnoses: 1. Intrauterine at 39.0 weeks gestation 2. First trimester bleeding 3. Gestational diabetes on Levemir 4. Anxiety on fluoxetine 5. History of LEEP 6. History of low transverse section requesting TOLAC 7. COVID-19 infection on 11/06/2020 8. Meconium stained fluid Post-delivery diagnoses: 1. Intrauterine status post at 39.0 weeks gestation 2. First trimester bleeding 3. Gestational diabetes on Levemir 4. Anxiety on fluoxetine 5. History of LEEP 6. History of low transverse section requesting TOLAC 7. COVID-19 infection on 11/06/2020 8. Meconium stained fluid 9. Delivery of healthy infant male weighing 8 pounds 6 ounces with Apgars of 6 and 9 Procedure: Vaginal after section Episiotomy Op report anesthesia: Epidural Delivering Physician: Krishna cruz MD Estimated blood loss (mL): 100 Findings: Delivery of healthy male weighing 8 pounds 6 ounces with Apgars of 6 and 9. Initial signs are suspicious for a left clavicular fracture. X-rays are pending. The infant is doing well otherwise at this time. Intact placenta with central umbilical cord insertion site. Pre-Delivery Course: The patient presented to labor and delivery with spontaneous rupture of membranes and contractions at approximately 2 AM on 03/27/2021. She was 3 cm dilated upon admission and changed to 4 cm within an hour. The patient was zoe every 1 to 3 minutes. No augmentation of labor was necessary. We had the discussion about proceeding with a repeat low- transverse section as this had been planned for Monday versus a trial of labor after section. We discussed the risks of a large infant due to her gestational diabetes and getting stuck with complications related to this as well as the possibility of a uterine rupture and needing emergency section. The patient requested to have a trial of labor after section. The patient contracted well on her own and made steady change. I stayed in house due to this being a trial of labor after section. At approximately 7:00 there was a prolonged deceleration. The patient had been 6 cm and directly after being checked and laid down, the deceleration started. She was rechecked and after just a few minutes had already changed to 8 to 9 cm and the head had descended significantly. The fore-bag that was present broke and meconium stained fluid was noted. A fluid bolus, position change and oxygen were given and the infant's heart rate improved. I checked the patient myself and she was initially -2 station and after a few minutes improved to -1 station and no prolapsed cord was noted. She continued to have regular contractions. The heart tones improved and there were no late decelerations but early decelerations. I felt that the most likely cause of the prolonged deceleration was due to rapid cervical change/descent. I discussed with the patient that the heart rate was improving and that this was likely the cause, but did offer to go back for section. Since things were gradually improving we agreed to continue with the trial of labor but to closely monitor. The patient continued to make change and had an anterior lip at 8:45 AM on 03/27/2021. We decided to start pushing and the patient was able to push past the anterior lip and was complete by 8:46 AM. The patient pushed well and the infant gradually descended. She made steady change. There was a tight vaginal ring and despite multiple contractions of pushing with the head , it would not give way so 1% lidocaine was placed and an episiotomy in the midline position was done. With the next contraction the was born at 10:23 AM on 04/16/2021. The infant was born in the OA position. The left shoulder was in an JANE position and with gentle downward pressure a pop was felt consistent with a clavicular fracture. The left shoulder then delivered with steady downward pressure. The body was delivered with steady pushing from the patient and maneuvering by myself but it was a very tight squeeze through the vaginal canal. The infant's mouth and nose were bulb suctioned by myself. The was placed on the mother's chest where the nurses were awaiting to care for him. The cord was clamped by myself after approximately 1 minute and cut by the infant's father. Cord blood was obtained. The cord was then drained of blood and steady pressure was placed on the umbilical cord. Uterine massage was carried out. The placenta delivered without complication at 10:29 AM on 03/27/2021. The placenta was noted to be intact and had meconium staining consistent with longer-term meconium present in the fluid. The umbilical cord had a central insertion site. The cervix was inspected and no lacerations were noted. The uterus was massaged and bleeding was very little. The episiotomy site was evaluated and the patient was noted to have a second-degree midline tear. This was repaired using 3-0 Vicryl in a running fashion. There was also a small first-degree laceration in the right upper labia wall. No suturing was needed for this. Currently the both the mother and infant are doing well. The infant is being evaluated for a possible clavicular fracture. Other than this, there are no signs of complications at this point. A&P Assessment and plan (1) Gestational diabetes: Status: Acute (2) Intrauterine : Status: Acute (3) Generalized anxiety disorder: Status: Acute Coding Level of Care Code Acute [employer] for [employer] Fwd Diagnoses Gestational diabetes O24.419 Intrauterine Z34.90 Generalized anxiety disorder F41.1
[2021-03-27] MEDS: benzocaine-menthol 78 gm Canister 1 SPRAY TOPICAL (13:09)
[2021-03-27] MEDS: lanolin oint 7 gm 1 APPLIC TOPICAL (13:09)
[2021-03-27] MEDS: lidocaine 1% INJ 20 mL INTRADERMA (13:14)
[2021-03-27] MEDS: ibuprofen 800 mg tablet PO ×2 (15:27→20:14)
[2021-03-27] MEDS: docusate sodium 100 mg Capsule PO (19:02)
[2021-03-27] MEDS: acetaminophen 325 mg Tablet 650 MG PO (19:02)
[2021-03-28 00:13] LABS: Hematocrit 34.8 % (37.0-47.0); Hemoglobin 11.3 g/dL (11.5-15.3); Mean Corpuscular HGB Conc 32.5 g/dL (30.0-36.0); Mean Corpuscular Hemoglobin 28.5 pg (28.0-34.0); Mean Corpuscular Volume 87.7 fL (81-99); Mean Platelet Volume 11.8 fL (7.4-10.4); Platelet Count 199 10^3/cmm (130-400); Red Blood Count 3.97 10^6/uL (4.1-5.3); Red Cell Distribution Width 14.2 % (12.1-15.1); White Blood Count 12.4 10^3/uL (4.0-10.0)
[2021-03-28 04:00] VITALS: BP 117/78; PULSE 78; RESP 17; TEMP 36.5
[2021-03-28] MEDS: HYDROcodone-acetaminophen 5-325 mg Tablet PO (06:05)
[2021-03-28] MEDS: ibuprofen 800 mg tablet PO (10:32)
[2021-03-28] MEDS: prenatal vitamin Capsule 1 CAP PO (10:33)
[2021-03-28] MEDS: docusate sodium 100 mg Capsule PO (10:33)
[2021-03-28 10:36] VITALS: BP 115/75; PULSE 73; RESP 16; TEMP 36.5; O2SAT 97
--- NOTE | 2021-03-28 14:38 | PM.DCS ---
Discharge Providers Date of Admission: 03/27/21 02:45 Date of Discharge: March 28, 2021 Attending Provider at Admission: Krishna Minaya MD Attending Provider at Discharge: Krishna Minaya MD Primary Care Provider: Krishna Minaya MD Diagnoses at Discharge Discharge Diagnosis (1) Gestational diabetes: Status: Acute (2) Intrauterine : Status: Acute (3) Generalized anxiety disorder: Status: Acute (4) (vaginal after ): Status: Acute Other Information Additional DC diagnoses/information: Pre-delivery diagnoses: 1. Intrauterine at 39.0 weeks gestation 2. First trimester bleeding 3. Gestational diabetes on Levemir 4. Anxiety on fluoxetine 5. History of LEEP 6. History of low transverse section requesting TOLAC 7. COVID-19 infection on 11/06/2020 8. Meconium stained fluid Post-delivery diagnoses: 1. Intrauterine status post at 39.0 weeks gestation 2. First trimester bleeding 3. Gestational diabetes on Levemir 4. Anxiety on fluoxetine 5. History of LEEP 6. History of low transverse section requesting TOLAC 7. COVID-19 infection on 11/06/2020 8. Meconium stained fluid 9. Delivery of healthy infant male weighing 8 pounds 6 ounces with Apgars of 6 and 9 Procedure: Vaginal after section Reason for Visit Reason for Visit: contractions Hospital Course Hospital Course Hospital course: The patient presented to labor and delivery triage and spontaneous labor. She decided to proceed with a trial of labor after section. The patient may change on her own and did not need any Pitocin for augmentation of labor. She had spontaneous rupture of membranes prior to arrival. The patient made steady change and had a successful on 03/27/2021. The patient had a second-degree laceration that was repaired. the patient has done very well and has had no complications. Her bleeding has been very little. She is ambulating, voiding, passing gas and tolerating food by mouth. Her pain is well controlled. At this point she is doing well and is ready to be discharged home. Routine discharge instructions were discussed and all questions were answered. The patient and her significant other are in agreement with the current plan of care. Physical Exam Narrative: EXAM NARRATIVE: General: Alert and oriented x3 Cardiac: Regular rate and rhythm without murmurs Lungs: Clear to auscultation bilaterally without wheezes, crackles or rhonchi Abdomen: Soft, non-tender, fundus is firm and initially was above the umbilicus, however with massage it is now 2 cm below the umbilicus. Extremities: Trace edema in the bilateral lower extremities Urinary Catheter Management^: Street: Cath Placed During This Visit: yes, but has since been removed by the nurse Reason for Continuing Indwelling Catheter: Decision to DC Catheter Urinary Catheter Date of Insertion: 03/27/21 Urinary Catheter Time of Insertion: 04:34 Date Urinary Catheter Removed: 03/27/21 Time Urinary Catheter Discontinued: 08:42 Discharge Data Data Completed and Pending: Labs from last 24 hours 03/28/21 00:00 WBC 12.4 H RBC 3.97 L Hgb 11.3 L Hct 34.8 L MCV 87.7 MCH 28.5 MCHC 32.5 RDW 14.2 Plt Count 199 MPV 11.8 H Vitals: Last Vital Signs Temp 97.7 F 03/28/21 10:36 Pulse 73 03/28/21 10:36 Resp 16 03/28/21 10:36 BP 115/75 03/28/21 10:36 Pulse Ox 97 03/28/21 10:36 Discharge Plan Discharge Patient Disposition: Home Condition: Good Prescriptions: New hydrocodone-acetaminophen 5-325 mg Tablet 1 tab PO Q6H PRN (Reason: Moderate To Severe Pain) Qty: 15 RF: 0 ibuprofen 800 mg Tablet 800 mg PO TID Qty: 60 RF: 0 Continued fluoxetine [Prozac] 20 mg capsule 20 mg PO DAILY Qty: 30 RF: 4 1 tab PO DAILY RF: 0 Discontinued Levemir Flexpen 100 unit/mL (3 mL) Insulin Pen 35 unit SUBCUT DAILY RF: 0 Discharge Orders: Discharge Order (Routine); Ordered 03/28/21 Ordered By: Krishna Minaya Referrals: Krishna Minaya MD [Primary Care Provider] - (Please call [facility] on Monday03/29/21 to schedule your visit at 6 weeks .) Discharge Diet: Regular Discharge Activity: Resume usual activity Patient Instructions: Depression (GEN), Perineal Care (DC), Breast Care for the Breast Feeding Mother (DC), Vaginal Delivery (DC), Pre-eclampsia and Eclampsia (DC), OB Caring for Baby - [facility], OB Discharge Report, OB Food/Drug Interaction Guide, Opioid Safety, OB Your Care - [facility], OB Proud Parent Packet, OB Vaginal Deliveries Activity Restrictions/Additional Instructions: Nothing per vagina for 6 weeks. I would recommend showering versus bathing for the next 6 weeks as well. Discharge Attestations Time Spent in Discharge Care*: greater than 30 min Quality Metrics Clinical Quality Measures During this hospital stay, did patient experience: None Coding Level of Care Code Acute [facility] note Diagnoses Gestational diabetes O24.419 Intrauterine Z34.90 Generalized anxiety disorder F41.1 (vaginal after ) O34.219
[2021-03-28 16:00] VITALS: BP 113/74; PULSE 80; RESP 16; TEMP 36.5; O2SAT 97
== END 2021-03-28 16:00 | disposition home or self-care (01) | DRG 806 ==
LOC: OBGYN 08:49
PROVIDERS: Admitting Provider Family Medicine; PCP Family Medicine; Visit Provider Family Medicine
DX: O24.424 Gestational diabetes mellitus in childbirth, insulin controlled (principal); F33.9 Major depressive disorder, recurrent, unspecified; Z37.0 Single live birth; O99.344 Other mental disorders complicating childbirth; F41.1 Generalized anxiety disorder; O77.0 Labor and delivery complicated by meconium in amniotic fluid; O76 Abnormality in fetal heart rate and rhythm complicating labor and delivery; O70.1 Second degree perineal laceration during delivery; Z3A.39 39 weeks gestation of pregnancy; O75.89 Other specified complications of labor and delivery; G43.909 Migraine, unspecified, not intractable, without status migrainosus; O34.211 Maternal care for low transverse scar from previous cesarean delivery; Z86.16 Personal history of COVID-19; F43.12 Post-traumatic stress disorder, chronic; Z87.891 Personal history of nicotine dependence
CPT/HCPCS: 36415; 36416; 51702; 59025; 59409; 59610; 82962; 83986; 85025; 85027; 99211; J0595; J2405; J2795